=== PATIENT | female | born 1940 | race African-American/Black ===

== ENCOUNTER 2017-06-27 01:49 | Inpatient (IN) | payer MEDICARE ==
[2017-06-27 02:25] LABS: ABSOLUTE BASOPHILS # (AUTO) 0.1 10^3/uL (0.0-0.2); ABSOLUTE EOSINOPHILS # (AUTO) 0.1 10^3/uL (0.0-0.6); ABSOLUTE LYMPHOCYTES (AUTO) 1.5 10^3/uL (0.5-4.7); ABSOLUTE MONOCYTES (AUTO) 0.5 10^3/uL (0.1-1.4); ABSOLUTE NEUT (AUTO) 4.1 10^3/uL (1.7-8.2); EOSINOPHILS % (AUTO) 1.4 % (0-6); HEMATOCRIT 35.5 % (36.0-47.0); HEMOGLOBIN 11.2 g/dL (12.0-15.5); HGB HCT DIFFERENCE -1.9; LYMPHOCYTES % (AUTO) 24.3 % (13-45); MEAN CORPUSCULAR HEMOGLOBIN 22.8 pg (27.0-33.4); MEAN CORPUSCULAR HGB CONC 31.4 g/dL (32.0-36.0); MEAN CORPUSCULAR VOLUME 73 fl (80-97); MONOCYTES % (AUTO) 7.8 % (3-13); RED CELL DISTRIBUTION WIDTH 14.5 % (11.5-14.0); SEGMENTED NEUTROPHILS % (AUTO) 65.5 % (42-78); WHITE BLOOD COUNT 6.2 10^3/uL (4.0-10.5)
--- NOTE | 2017-06-27 02:27 | ER Document Report ---
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 Patient was at a gas station. She was there for 12 hours. The daughter did call and speak with the nurse informed her that the patient has paranoid schizophrenia and that she has not been taking her medications. Whenever she does not take medications for stress hallucinate and has issues like she does tonight. Patient herself denies this. She tells me that the only medication she takes is aspirin. She tells me she takes no other medications. I asked her why she was at the gas station so long. She says that she was only at the gas station for approximate she can snack. She tells me that she does not have a psychiatric history. This is in contradiction to what the daughter apparently said. This is also encouraged addiction to what the mobile crisis workers placed on involuntary commitment paperwork. She has no further complaints this time. She denies any pain. She otherwise feels well. - Related Data Allergies/Adverse Reactions: No Known Allergies Allergy (Unverified 06/27/17 02:25) Home Medications: Current Home Medications No Home Medications 06/27/17 [History] Past Medical History - Social History Smoking Status: Never Smoker Frequency of alcohol use: None Drug Abuse: None Family History: Reviewed & Not Pertinent Review of Systems - Review of Systems Notes: My Normal Review Basic REVIEW OF SYSTEMS: CONSTITUTIONAL : Denies fever, chills, or sweats. Denies recent illness. EENT: Denies eye, ear, throat, or mouth pain or symptoms. Denies nasal or sinus congestion. CARDIOVASCULAR: Denies chest pain. RESPIRATORY: Denies cough, cold, or chest congestion. Denies shortness of breath, difficulty breathing, or wheezing. GASTROINTESTINAL: Denies abdominal pain. Denies nausea, vomiting, or diarrhea. Denies constipation. Last BM: GENITOURINARY: Denies difficulty urinating, painful urination, burning, frequency, or blood in urine. MUSCULOSKELETAL: Denies neck or back pain or joint pain or swelling. SKIN: Denies rash or skin lesions. NEUROLOGICAL: Denies altered mental status or loss of consciousness. Denies headache. Denies weakness or paralysis or loss of use of either side. Denies problems with gait or speech. Denies sensory or motor loss. PSYCHIATRIC: Patient's. History of schizophrenia per report from family members. ALL OTHER SYSTEMS REVIEWED AND NEGATIVE. Physical Exam - Vital signs Vitals: Temp Pulse Resp BP Pulse Ox 98.2 F 66 15 137/65 H 100 06/27/17 02:23 06/27/17 02:23 06/27/17 02:23 06/27/17 02:23 06/27/17 02:23 - Notes Notes: General Appearance: Well nourished, alert, cooperative, no acute distress, no obvious discomfort. Appearing. Vitals: reviewed, See vital signs table. Head: no swelling or tenderness to the head Eyes: PERRL, EOMI, Conjuctiva clear Mouth: No decreasd moisture Throat: No tonsillar inflammation, No airway obstruction, No lymphadenopathy Lungs: No wheezing, No rales, No rhonci, No accessory muscle use, good air exchange bilaterally. Heart: Normal rate, Regular rythm, No murmur, no rub Abdomen: Normal BS, soft, No rigidity, No abdominal tenderness, No guarding, no rebound, no abdominal masses, no organomegaly Extremities: strength 5/5 in all extremities, good pulses in all extremities, no swelling or tenderness in the extremities, no edema. Skin: warm, dry, appropriate color, no rash Neuro: speech clear, oriented x 3, normal affect, responds appropriately to questions. Renal nerves II through XII are intact. Distal sensation intact. Normal gait. Course - Re-evaluation Re-evalutation: 06/27/17 03:30 Patient is medically stable for psychiatric evaluation and placement. She is on involuntary commitment paperwork. Patient apparently has history of paranoid schizophrenia has not been taking medications. It is unclear what medications she is supposed to be on at this time. Dictation of this chart was performed using voice recognition software; therefore, there may be some unintended grammatical errors. - Vital Signs Vital signs: Temp Pulse Resp BP Pulse Ox 98.2 F 66 15 137/65 H 100 06/27/17 02:23 06/27/17 02:23 06/27/17 02:23 06/27/17 02:23 06/27/17 02:23 - Laboratory Result Diagrams: 06/27/17 02:00 06/27/17 02:00 Laboratory results interpreted by me: 11/01/0606/27/17 06/27/17 02:00 02:00 02:00 Hgb 11.2 L Hct 35.5 L MCV 73 L MCH 22.8 L MCHC 31.4 L RDW 14.5 H Chloride 109 H Alkaline Phosphatase 134 H Total Protein 8.4 H Urine Ketones TRACE H Urine Blood MODERATE H Ur Leukocyte Esterase SMALL H Salicylates < 1.0 L Acetaminophen < 10 L - EKG Interpretation by Me Additional EKG results interpreted by me: 06/27/17 02:27 EKG is reviewed and interpreted by me. EKG shows normal sinus rhythm with rate of [address] segment elevation or depression. No ischemic T-wave inversions. NH interval, QRS duration, QTc intervals are within normal range.
[2017-06-27 02:33] LABS: APPEARANCE,URINE SLIGHTLY-CLOUDY; BILIRUBIN,URINE NEGATIVE (NEGATIVE); GLUCOSE, URINE NEGATIVE (NEGATIVE); KETONES,URINE TRACE mg/dL (NEGATIVE); LEUKOCYTE ESTERASE,URINE SMALL (NEGATIVE); NITRITE,URINE NEGATIVE (NEGATIVE); PROTEIN,URINE NEGATIVE (NEGATIVE); URINE SPECIFIC GRAVITY 1.021; UROBILINOGEN,URINE NEGATIVE mg/dL (<2.0)
[2017-06-27 02:38] LABS: ALANINE AMINOTRANSFERASE 28 U/L (9-52); ALBUMIN 4.4 g/dL (3.5-5.0); ALKALINE PHOSPHATASE 134 U/L (38-126); ANION GAP 13 (5-19); ASPARTATE AMINO TRANSFERASE 21 U/L (14-36); BILIRUBIN,DIRECT 0.3 mg/dL (0.0-0.4); BILIRUBIN,TOTAL 0.6 mg/dL (0.2-1.3); BLOOD UREA NITROGEN 15 mg/dL (7-20); CALCIUM 9.9 mg/dL (8.4-10.2); CARBON DIOXIDE 23 mmol/L (22-30); CHLORIDE 109 mmol/L (98-107); CREATININE RESULT 0.67 mg/dL (0.52-1.25); GLUCOSE 105 mg/dL (75-110); POTASSIUM 3.6 mmol/L (3.6-5.0); TOTAL PROTEIN 8.4 g/dL (6.3-8.2)
[2017-06-27 02:39] LABS: URINE BARBITURATES SCREEN NEGATIVE; URINE METHADONE SCREEN NEGATIVE; URINE OPIATES LOW NEGATIVE; URINE PHENCYCLIDINE SCREEN NEGATIVE
[2017-06-27 02:44] LABS: ALCOHOL < 10 mg/dL (NONE DETECTED)
--- NOTE | 2017-06-27 10:19 | PSYCHOLOGICAL NOTE ---
Psych Note - Psych Note Psych Note: Is a 76-year-old female who presented last night after she was found in a gas station parking lot for what was reported as 12 hours. Patient reportedly is from [place] and is diagnosed with paranoid schizophrenia and possible dementia (per nursing note) patient this morning states she made a wrong turn on her way home. Patient did not report where. She was coming from or what she was doing. Patient does report she is in [facility] but does not know the name of this facility. Patient is pleasant and easily engages in conversation in close proximity due to her reported hearing problems. Elizabeth mobile lay out worker with [facility] [phone] states: she responded around midnight last night after TODD found her sitting in a car at a gas station in [place] for over 12 hours. marriage and family social worker states she later found out that there was reported as a missing person in [place]. She states the patient resides in [place] and one of her son's, Nuno about 3 weeks ago who also served as her caregiver. Worker states the patient does have a living son, Arya who reported to her last night that she experiences command hallucinations, and reported that the patient stated Darek Sesay and [employer] told her to go to [place] to picking machine operator her son. Note, patient does not acknowledge that her son has . Also reported was over the past 6 months she has been IVC'd multiple times, most recently May 28. Silver Alert was canceled for this person. Niece's name and contact information: Ghada . Son, Arya [phone] states the patient hears voices for about 12 years that tell her to do things out of the ordinary. He states she follows commands, such as going back and forth to the care and or trash late at night, go to the car and go to the corner store and sit in the parking lot, and she can be observed arguing back and forth with the voices all day from the time she gets up to the time she goes to bed. Son reports she recently discharged from [facility], and was discharged last Wednesday but he has yet to see the paperwork and or medications. He states the patient told him she was driving to [place] to pick him up. Son states his brother of HIV, and she could not attend the due to being in the hospital. He states she refuses to acknowledge he has . Son further reports that he has no way to travel to [place] to retrieve his mother. Discussed with son overall concerns regarding patient's ability to drive herself home given this current episode. Noted patient's vehicle is in the [place] area. Ghada Cervantes [phone] states: over the past year the patient was IVC 4 times, but never stays in the hospital for long enough or will come out and take her medications for a few days and then report "[facility] [employer]" told her it was a joke. Niece reports the patient does not have a specific pharmacy, because she has never filled prescriptions upon discharge and would also shred her discharge papers and any prescriptions. Mirianece states the patient would not let anyone see them, and when the car pulled up to the house, she would go straight into her bedroom and use her shredding machine. Mirianherlinda states the patient can present extremely well, and even the deputy was going to let her drive home because she was able to tell her route, had a full tank of gas, etc. However, during a second conversation, she was unable to maintain her story or composure. Daughter reports the patient's sister in September, and then her son 3 weeks ago. Niherlinda states that historically the patient has been noncompliant with medications, and treatment. She states the patient has only ever been diagnosed with the Schizophrenia, and to her knowledge has no formal diagnosis of dementia. Helen reports up until know, her son has managed all the care and medications, and states tomorrow she plans to meet with a hardboard panel printer to discuss guardianship options. 799.59 (R41.9) unspecified neurocognitive disorder 298.9 (F29) unspecified schizophrenia spectrum and other psychotic disorder, per history Patient is recommended to rescind involuntary commitment at this time. Patient presents confused and with what is being reported as command hallucinations. Patient denies all of the above. Patient was found sitting in a parking lot for over 12 hours and had reported to family she was driving to [place] to picking machine operator her son, he should be noted is . Both collateral contacts deny a diagnosis of dementia but both endorse a diagnosis of schizophrenia only within the past 10-[address] demonstrates micorvascular ischemic changes of the white matter and areas of low density and prominent ventricles all suggestive of a neurocognitive process. Patient's overall presentation is more congruent with a neurocognitive process than Schizophrenia at this time. I consulted with Dr. Potter in regards to the care and management of this patient.
--- NOTE | 2017-06-27 13:50 | ER Document Report ---
ED General - General Chief Complaint: Psych Problem Stated Complaint: IVC WITH PAPERS Time Seen by Provider: 06/27/17 01:26 EST Notes: This is a very pleasant 76-year-old female patient who presented to the emergency department last night. Please see previous physician's note as well as mental health providers note. Reportedly patient was sleeping in a car. Altered mental status and a silver alert. Patient states that she drives and was going from [facility] to her home at [address] in [facility] [place] [facility] [place]. Got [place] [address] and ended up back here in [place] and slept. States that she knows how to get back home and would like to go home at this time. Denies any complaints at this time. - HPI Onset: Just prior to arrival - Related Data Allergies/Adverse Reactions: No Known Allergies Allergy (Unverified 06/27/17 02:25) Home Medications: Current Home Medications No Home Medications 06/27/17 [History] Past Medical History - General Information source: Patient - Social History Smoking Status: Never Smoker Frequency of alcohol use: None Drug Abuse: None Family History: Reviewed & Not Pertinent - Immunizations Hx Diphtheria, Pertussis, Tetanus Vaccination: No Review of Systems - Review of Systems Constitutional: No symptoms reported EENT: No symptoms reported Cardiovascular: No symptoms reported Respiratory: No symptoms reported Gastrointestinal: No symptoms reported Genitourinary: No symptoms reported Female Genitourinary: No symptoms reported Musculoskeletal: No symptoms reported Skin: No symptoms reported Hematologic/Lymphatic: No symptoms reported Neurological/Psychological: No symptoms reported Physical Exam - Vital signs Vitals: Temp Pulse Resp BP Pulse Ox 98.2 F 66 15 137/65 H 100 06/27/17 02:23 06/27/17 02:23 06/27/17 02:23 06/27/17 02:23 06/27/17 02:23 Interpretation: Normal - General General appearance: Appears well, Alert - HEENT Head: Normocephalic, Atraumatic Eyes: Normal Pupils: PERRL - Respiratory Respiratory status: No respiratory distress Chest status: Nontender Breath sounds: Normal Chest palpation: Normal - Cardiovascular Rhythm: Regular Heart sounds: Normal auscultation Murmur: No - Abdominal Inspection: Normal Distension: No distension Bowel sounds: Normal Tenderness: Nontender Organomegaly: No organomegaly - Back Back: Normal, Nontender - Extremities General upper extremity: Normal inspection, Nontender, Normal color, Normal ROM , Normal temperature General lower extremity: Normal inspection, Nontender, Normal color, Normal ROM , Normal temperature, Normal weight bearing. No: Rin's sign - Neurological Neuro grossly intact: Yes Cognition: Normal Orientation: AAOx4 Macy Coma Scale Eye Opening: Spontaneous Macy Coma Scale Verbal: Oriented Mell Coma Scale Motor: Obeys Commands Mell Coma Scale Total: 15 Speech: Normal Motor strength normal: LUE, RUE, LLE, RLE Sensory: Normal - Psychological Associated symptoms: Normal affect - Does have some obvious short-term memory loss. Believes that the president is Daniel Machado. Does not know the DR. Sesay is president. Is uncertain about where she is at this time., Normal mood - Skin Skin Temperature: Warm Skin Moisture: Dry Skin Color: Normal Course - Re-evaluation Re-evalutation: 06/27/17 13:49 This time family members have been contacted. They do not believe that patient has any mental health issue or dementia. Will add a head CT. Due to the fact that there is this reported time in a vehicle will add a arterial blood gas to look for carbon monoxide. Unlikely we will find anything as she has been in the emergency department now for several hours but we need to be safe just just in case. 06/27/17 14:55 Laboratory 06/27/17 06/27/17 06/27/17 02:00 02:00 02:00 WBC 6.2 RBC 4.90 Hgb 11.2 L Hct 35.5 L MCV 73 L MCH 22.8 L MCHC 31.4 L RDW 14.5 H Plt Count 377 Seg Neutrophils % 65.5 Lymphocytes % 24.3 Monocytes % 7.8 Eosinophils % 1.4 Basophils % 1.0 Absolute Neutrophils 4.1 Absolute Lymphocytes 1.5 Absolute Monocytes 0.5 Absolute Eosinophils 0.1 Absolute Basophils 0.1 Sodium 145.0 Potassium 3.6 Chloride 109 H Carbon Dioxide 23 Anion Gap 13 BUN 15 Creatinine 0.67 Est GFR ( Amer) > 60 Est GFR (Non-Af Amer) > 60 Glucose 105 Calcium 9.9 Total Bilirubin 0.6 Direct Bilirubin 0.3 Indirect Bilirubin Not Reportable Neonat Total Bilirubin Not Reportable AST 21 ALT 28 Alkaline Phosphatase 134 H Total Protein 8.4 H Albumin 4.4 Urine Color YELLOW Urine Appearance SLIGHTLY-CLOUDY Urine pH 5.0 Ur Specific [place] 1.021 Urine Protein NEGATIVE Urine Glucose (UA) NEGATIVE Urine Ketones TRACE H Urine Blood MODERATE H Urine Nitrite NEGATIVE Urine Bilirubin NEGATIVE Urine Urobilinogen NEGATIVE Ur Leukocyte Esterase SMALL H Urine WBC (Auto) 9 Urine RBC (Auto) 32 Squamous Epi Cells Auto 1 Urine Mucus (Auto) RARE Urine Ascorbic Acid NEGATIVE Salicylates < 1.0 L Urine Opiates Screen Urine Methadone Screen Acetaminophen < 10 L Ur Barbiturates Screen Ur Phencyclidine Scrn Ur Amphetamines Screen U Benzodiazepines Scrn Urine Cocaine Screen U Marijuana (THC) Screen Serum Alcohol < 10 06/27/17 02:00 WBC RBC Hgb Hct MCV MCH MCHC RDW Plt Count Seg Neutrophils % Lymphocytes % Monocytes % Eosinophils % Basophils % Absolute Neutrophils Absolute Lymphocytes Absolute Monocytes Absolute Eosinophils Absolute Basophils Sodium Potassium Chloride Carbon Dioxide Anion Gap BUN Creatinine Est GFR ( Amer) Est GFR (Non-Af Amer) Glucose Calcium Total Bilirubin Direct Bilirubin Indirect Bilirubin Neonat Total Bilirubin AST ALT Alkaline Phosphatase Total Protein Albumin Urine Color Urine Appearance Urine pH Ur Specific [place] Urine Protein Urine Glucose (UA) Urine Ketones Urine Blood Urine Nitrite Urine Bilirubin Urine Urobilinogen Ur Leukocyte Esterase Urine WBC (Auto) Urine RBC (Auto) Squamous Epi Cells Auto Urine Mucus (Auto) Urine Ascorbic Acid Salicylates Urine Opiates Screen NEGATIVE Urine Methadone Screen NEGATIVE Acetaminophen Ur Barbiturates Screen NEGATIVE Ur Phencyclidine Scrn NEGATIVE Ur Amphetamines Screen NEGATIVE U Benzodiazepines Scrn NEGATIVE Urine Cocaine Screen NEGATIVE U Marijuana (THC) Screen NEGATIVE Serum Alcohol Head CT 06/27/17 13:08 IMPRESSION: MILD CHRONIC CHANGES OF ATROPHY AND MICROVASCULAR ISCHEMIA. NO ACUTE PROCESS. EVIDENCE OF ACUTE STROKE: NO. 06/27/17 15:34 Patient with dementia. Is unsafe to go home. Patient needs a usp is right she really needs. Patient needs to be admitted for this altered mental status, dementia workup and possible UTI. Will consult with hospitalist for admit. - Vital Signs Vital signs: Temp Pulse Resp BP Pulse Ox 97.4 F 68 16 97/58 L 97 06/27/17 09:14 06/27/17 09:14 06/27/17 09:14 06/27/17 09:14 06/27/17 09:14 - Laboratory Result Diagrams: 06/27/17 02:00 06/27/17 02:00 Laboratory results interpreted by me: 06/27/17 06/27/1706/27/17 02:00 02:00 02:00 Hgb 11.2 L Hct 35.5 L MCV 73 L MCH 22.8 L MCHC 31.4 L RDW 14.5 H Chloride 109 H Alkaline Phosphatase 134 H Total Protein 8.4 H Urine Ketones TRACE H Urine Blood MODERATE H Ur Leukocyte Esterase SMALL H Salicylates < 1.0 L Acetaminophen < 10 L Discharge - Discharge Clinical Impression: Schizophrenia Qualifiers: Schizophrenia type: unspecified Qualified Code(s): F20.9 - Schizophrenia, unspecified Dementia Qualifiers: Dementia type: unspecified type Dementia behavioral disturbance: with behavioral disturbance Qualified Code(s): F03.91 - Unspecified dementia with behavioral disturbance Condition: Stable Disposition: ADMITTED INPATIENT Admitting Provider: Hospitalist - [facility] Admitted: Medical Floor
--- NOTE | 2017-06-27 14:13 | RADIOLOGY REPORT (SQ) ---
EXAM DESCRIPTION: CT HEAD WITHOUT COMPLETED DATE/TIME: 06/27/2017 2:01 pm REASON FOR STUDY: alterd mental status COMPARISON: None. TECHNIQUE: Axial images acquired through the brain without intravenous contrast. Images reviewed wi th bone, brain and subdural windows. Images stored on PACS. All CT scanners at this facility use dose modulation, iterative reconstruction, and/or weight based d osing when appropriate to reduce radiation dose to as low as reasonably achievable (ALARA). [facility]: Dose Right [facility]: CareDose [facility]: Dose Right [facility]: Teradose 4D [facility]: Smart [employer] RADIATION DOSE: Up-to-date CT equipment and radiation dose reduction techniques were employed. CTDIv ol: 64.6 mGy. DLP: 1034 mGy-cm. mGy. LIMITATIONS: None. FINDINGS: VENTRICLES: Prominent. CEREBRUM: No masses. No hemorrhage. No midline shift. Areas of low density in the white matter mos t likely due to chronic micro-vascular ischemic change. No evidence for acute infarction. CEREBELLUM: No masses. No hemorrhage. No alteration of density. No evidence for acute infarction. EXTRAAXIAL SPACES: Mild age-related involutional change. No fluid collections. No masses. ORBITS AND GLOBE: No intra- or extraconal masses. Normal contour of globe without masses. CALVARIUM: No fracture. PARANASAL SINUSES: No fluid or mucosal thickening. SOFT TISSUES: No mass or hematoma. OTHER: No other significant finding. IMPRESSION: MILD CHRONIC CHANGES OF ATROPHY AND MICROVASCULAR ISCHEMIA. NO ACUTE PROCESS. EVIDENCE OF ACUTE STROKE: NO. TECHNICAL DOCUMENTATION: JOB ID: [id number] Quality ID # [id number]: Final reports with documentation of one or more dose reduction techniques (e.g., Au tomated exposure control, adjustment of the mA and/or kV according to patient size, use of iterative reconstruction technique) 2010 [employer]- All Rights Reserved
--- NOTE | 2017-06-27 14:53 | EKG REPORT ---
SEVERITY:- NORMAL ECG - SINUS RHYTHM : Confirmed by: Bill Ferreira 27-Jun-2017 14:52:47
[2017-06-27 16:55] LABS: ARTERIAL BLOOD BASE EXCESS 4.3 mmol/L; ARTERIAL BLOOD O2 SATURATION 96.6 % (94-98)
--- NOTE | 2017-06-27 16:58 | PDOC PROGRESS REPORT ---
Subjective Progress Note for:: 06/27/17 Subjective:: This is a 76-year-old female who is brought in by department of public safety [place] because she was having sit in her car alone for long periods of time. Apparently she was at a gas station have been there for over 12 hours. log raft worker in the ER called her daughter or niece who states she has paranoid schizophrenia not been taken her medication. Mobile gas worker placed patient on involuntary commitment paperwork until further psychiatric evaluation and placement can be made. I will order a psych consult to evaluate her mental capacity and capability of making her own decisions at this time. Consider placement for her safety unless family will assume care. Physical Exam Vital Signs: Temp Pulse Resp BP Pulse Ox 97.4 F 68 16 97/58 L 97 06/27/17 09:14 06/27/17 09:14 06/27/17 09:14 06/27/17 09:14 06/27/17 09:14 General appearance: PRESENT: no acute distress, well-developed, well-nourished Head exam: PRESENT: atraumatic, normocephalic Eye exam: PRESENT: conjunctiva pink, EOMI, PERRLA. ABSENT: scleral icterus Ear exam: PRESENT: normal external ear exam Mouth exam: PRESENT: moist, tongue midline Neck exam: ABSENT: carotid bruit, JVD, lymphadenopathy, thyromegaly Respiratory exam: PRESENT: clear to auscultation anand. ABSENT: rales, rhonchi, wheezes Cardiovascular exam: PRESENT: RRR. ABSENT: diastolic murmur, rubs, systolic murmur Pulses: PRESENT: normal dorsalis pedis pul Vascular exam: PRESENT: normal capillary refill GI/Abdominal exam: PRESENT: normal bowel sounds, soft. ABSENT: distended, guarding, mass, organolmegaly, rebound, tenderness Rectal exam: PRESENT: deferred Extremities exam: PRESENT: full ROM. ABSENT: calf tenderness, clubbing, pedal edema Neurological exam: PRESENT: alert, awake, oriented to person, CN II-XII grossly intact. ABSENT: oriented to place, oriented to time, oriented to situation, motor sensory deficit Psychiatric exam: PRESENT: appropriate affect, normal mood. ABSENT: homicidal ideation, suicidal ideation Skin exam: PRESENT: dry, intact, warm. ABSENT: cyanosis, rash Results Impressions: Head CT 06/27/17 13:08 IMPRESSION: MILD CHRONIC CHANGES OF ATROPHY AND MICROVASCULAR ISCHEMIA. NO ACUTE PROCESS. EVIDENCE OF ACUTE STROKE: NO. Assessment & Plan - Diagnosis (1) UTI (urinary tract infection) Qualifiers: Urinary tract infection type: site unspecified Hematuria presence: without hematuria Qualified Code(s): N39.0 - Urinary tract infection, site not specified Is this a current diagnosis for this admission?: Yes Plan: Patient has a urinary tract infection with small amount of leukocyte esterase WBCs positive will treat patient with Rocephin after blood cultures are obtained. Also send a urine for sensitivity I will also give her some IV fluids due to the uncertainty of events leading up to today. (2) Dementia Qualifiers: Dementia type: unspecified type Dementia behavioral disturbance: with behavioral disturbance Qualified Code(s): F03.91 - Unspecified dementia with behavioral disturbance Is this a current diagnosis for this admission?: Yes Plan: Patient was started on BuSpar and Depakote sprinkles in the ER. Will have a formal psych consult ordered to evaluate competency and possible need for placement. I will attempt to contact family tomorrow if none is present apparently the ER had attempted to contact patient's daughter and her niece. I will follow-up. Have social work discharge planning get involved for discharge needs. (3) Schizophrenia Qualifiers: Schizophrenia type: unspecified Qualified Code(s): F20.9 - Schizophrenia, unspecified - Inpatient Certification Based on my medical assessment, after consideration of the patient's comorbidities, presenting symptoms, or acuity I expect that the services needed warrant INPATIENT care.: Yes I certify that my determination is in accordance with my understanding of Medicare's requirements for reasonable and necessary INPATIENT services [42 CFR 412.3e].: Yes Medical Necessity: Need for IV Antibiotics, Risk of Diagnosis Which Will Require Inpatient Eval/Care/Monitoring Post Hospital Care: D/C Automation Analyst Documentation
[2017-06-27] MEDS: DIVALPROEX SODIUM 125 MG CAP.SPRINK PO SCH (17:07)
[2017-06-27] MEDS ORDERED: CEFTRIAXONE 1 GM/D5W RTU 1 GM/50 ML RTUPB IV ONE (17:16)
[2017-06-27] MEDS ORDERED: BUSPIRONE HCL 10 MG TABLET PO SCH (18:00)
[2017-06-27] MEDS: DEXTROSE 5%-1/2 NORMAL SALINE 1,000 ML IV PRN (18:18)
[2017-06-27] MEDS ORDERED: INFLUENZA ADLT QUAD (36MOS+) 2017-18 VAC 0.5 ML SYR IM PRN (20:22)
[2017-06-28] MEDS: ENOXAPARIN SODIUM INJ 30 MG/0.3 ML DISP.SYRIN SUBCUT SCH (09:25)
[2017-06-28] MEDS: CEFTRIAXONE 1 GM/D5W RTU 1 GM/50 ML RTUPB IV SCH (09:26)
[2017-06-28] MEDS: BUSPIRONE HCL 10 MG TABLET PO SCH ×2 (10:20→17:50)
[2017-06-28] MEDS ORDERED: INFLUENZA ADLT QUAD (36MOS+) 2017-18 VAC 0.5 ML SYR IM PRN (10:30)
[2017-06-28] MEDS: DIVALPROEX SODIUM 125 MG CAP.SPRINK PO SCH ×2 (10:38→17:50)
--- NOTE | 2017-06-28 13:03 | PDOC PROGRESS REPORT ---
Subjective Progress Note for:: 06/28/17 Subjective:: This is a 76-year-old female who is brought in by department of public safety [place] because she was having sit in her car alone for long periods of time. Apparently she was at a gas station have been there for over 12 hours. custodial maintenance worker in the ER called her daughter or niece who states she has paranoid schizophrenia not been taken her medication. Mobile adult day care worker placed patient on involuntary commitment paperwork until further psychiatric evaluation and placement can be made. I will order a psych consult to evaluate her mental capacity and capability of making her own decisions at this time. Consider placement for her safety unless family will assume care. Patient continues to have confusion she is unable to care for family or medical history adequately of family present. Physical Exam Vital Signs: Temp Pulse Resp BP Pulse Ox 98.1 F 76 12 138/73 H 100 06/28/17 07:30 06/28/17 07:30 06/28/17 07:30 06/28/17 07:30 06/28/17 07:30 Intake & Output 06/27/17 06/28/17 06/29/17 06:59 06:59 06:59 Intake Total 1020 Balance 1020 General appearance: PRESENT: no acute distress, well-developed, well-nourished Head exam: PRESENT: atraumatic, normocephalic Eye exam: PRESENT: conjunctiva pink, EOMI, PERRLA. ABSENT: scleral icterus Ear exam: PRESENT: normal external ear exam Mouth exam: PRESENT: moist, tongue midline Neck exam: ABSENT: carotid bruit, JVD, lymphadenopathy, thyromegaly Respiratory exam: PRESENT: clear to auscultation anand. ABSENT: rales, rhonchi, wheezes Cardiovascular exam: PRESENT: RRR. ABSENT: diastolic murmur, rubs, systolic murmur Pulses: PRESENT: normal dorsalis pedis pul Vascular exam: PRESENT: normal capillary refill GI/Abdominal exam: PRESENT: normal bowel sounds, soft. ABSENT: distended, guarding, mass, organolmegaly, rebound, tenderness Rectal exam: PRESENT: deferred Extremities exam: PRESENT: full ROM. ABSENT: calf tenderness, clubbing, pedal edema Neurological exam: PRESENT: alert, awake, oriented to person, oriented to place , oriented to time, oriented to situation, CN II-XII grossly intact. ABSENT: motor sensory deficit Psychiatric exam: PRESENT: appropriate affect, normal mood. ABSENT: homicidal ideation, suicidal ideation Skin exam: PRESENT: dry, intact, warm. ABSENT: cyanosis, rash Results Laboratory Results: 06/27/17 16:40 Carbonic Acid 1.32 HCO3/H2CO3 Ratio 21:1 ABG pH 7.44 ABG pCO2 44.0 ABG pO2 84.5 ABG HCO3 29.0 H ABG O2 Saturation 96.6 ABG Base Excess 4.3 FiO2 21% Impressions: Head CT 06/27/17 13:08 IMPRESSION: MILD CHRONIC CHANGES OF ATROPHY AND MICROVASCULAR ISCHEMIA. NO ACUTE PROCESS. EVIDENCE OF ACUTE STROKE: NO. Assessment & Plan - Diagnosis (1) UTI (urinary tract infection) Qualifiers: Urinary tract infection type: site unspecified Hematuria presence: without hematuria Qualified Code(s): N39.0 - Urinary tract infection, site not specified Is this a current diagnosis for this admission?: Yes (2) Dementia Qualifiers: Dementia type: unspecified type Dementia behavioral disturbance: with behavioral disturbance Qualified Code(s): F03.91 - Unspecified dementia with behavioral disturbance Is this a current diagnosis for this admission?: Yes (3) Schizophrenia Qualifiers: Schizophrenia type: unspecified Qualified Code(s): F20.9 - Schizophrenia, unspecified
[2017-06-29] MEDS: DEXTROSE 5%-1/2 NORMAL SALINE 1,000 ML IV PRN (02:42)
[2017-06-29] MEDS: ENOXAPARIN SODIUM INJ 30 MG/0.3 ML DISP.SYRIN SUBCUT SCH (09:47)
[2017-06-29] MEDS: CEFTRIAXONE 1 GM/D5W RTU 1 GM/50 ML RTUPB IV SCH (09:47)
[2017-06-29] MEDS: DIVALPROEX SODIUM 125 MG CAP.SPRINK PO SCH ×2 (09:48→17:20)
[2017-06-29] MEDS: BUSPIRONE HCL 10 MG TABLET PO SCH ×2 (09:48→17:20)
--- NOTE | 2017-06-29 13:52 | PDOC PROGRESS REPORT ---
Subjective Progress Note for:: 06/29/17 Subjective:: Patient is seen on morning rounds sitting up in bed comfortably. She reports that she does not have much of an appetite today but denies abdominal pain, nausea, vomiting, diarrhea, constipation. She states that she slept well and appreciates having had good care. She does ask about being discharged home today. She states that she came to [place] by accident on her way to [place] to see her son, and believes that her admission to the hospital was "all just worrying over much." Per notes by planner chief, patient's son 3 weeks ago. The patient has a history of schizophrenia and medication nonadherence but otherwise has been in good health. Family members are in the process of meeting with director of physician practices to establish guardianship and find permanent placement for the patient in [place] they live. The patient states that she is feeling fine and has no other questions or concerns today. Physical Exam Vital Signs: Temp Pulse Resp BP Pulse Ox 98.7 F 96 16 129/63 H 98 06/28/17 19:40 06/28/17 19:40 06/28/17 19:40 06/28/17 19:40 06/28/17 19:40 Intake & Output 06/28/17 06/29/17 06/30/17 06:59 06:59 06:59 Intake Total 1020 3078 Balance 1020 3078 General appearance: PRESENT: no acute distress, cooperative, well-developed, well-nourished Head exam: PRESENT: atraumatic, normocephalic Eye exam: PRESENT: conjunctiva pink, EOMI, PERRLA. ABSENT: scleral icterus Ear exam: PRESENT: normal external ear exam Mouth exam: PRESENT: moist, tongue midline Neck exam: ABSENT: carotid bruit, JVD, lymphadenopathy, thyromegaly Respiratory exam: PRESENT: clear to auscultation anand. ABSENT: rales, rhonchi, wheezes Cardiovascular exam: PRESENT: RRR. ABSENT: diastolic murmur, rubs, systolic murmur Pulses: PRESENT: normal dorsalis pedis pul Vascular exam: PRESENT: normal capillary refill GI/Abdominal exam: PRESENT: normal bowel sounds, soft. ABSENT: distended, guarding, mass, organolmegaly, rebound, tenderness Rectal exam: PRESENT: deferred Extremities exam: PRESENT: full ROM. ABSENT: calf tenderness, clubbing, pedal edema Neurological exam: PRESENT: alert, awake, oriented to person, oriented to place , oriented to time, CN II-XII grossly intact. ABSENT: oriented to situation, motor sensory deficit Psychiatric exam: PRESENT: appropriate affect, normal mood. ABSENT: homicidal ideation, suicidal ideation Skin exam: PRESENT: dry, intact, warm. ABSENT: cyanosis, rash Results Impressions: Head CT 06/27/17 13:08 IMPRESSION: MILD CHRONIC CHANGES OF ATROPHY AND MICROVASCULAR ISCHEMIA. NO ACUTE PROCESS. EVIDENCE OF ACUTE STROKE: NO. Assessment & Plan - Diagnosis (1) Dementia Qualifiers: Dementia type: unspecified type Dementia behavioral disturbance: with behavioral disturbance Qualified Code(s): F03.91 - Unspecified dementia with behavioral disturbance Is this a current diagnosis for this admission?: Yes Plan: 1-Appreciate discharge planning's assistance in arranging a safe discharge plan. (2) Schizophrenia Qualifiers: Schizophrenia type: unspecified Qualified Code(s): F20.9 - Schizophrenia, unspecified Is this a current diagnosis for this admission?: Yes Plan: 1- Continue Depakote 500 mg p.o. twice daily 2- Continue BuSpar 10 mg p.o. twice daily 3-appreciate discharge planning assistance in developing a safe discharge plan. (3) UTI (urinary tract infection) Qualifiers: Urinary tract infection type: site unspecified Hematuria presence: without hematuria Qualified Code(s): N39.0 - Urinary tract infection, site not specified Is this a current diagnosis for this admission?: Yes Plan: UA on admission positive for leuk esterase, blood, ketones and so patient was empirically started on Rocephin for UTI. Urine culture demonstrates mixed urogenital yasmine and patient is asymptomatic today, therefore will discontinue Rocephin tomorrow after receiving her third dose. - Time Time Spent with patient: 25-34 minutes Medications reviewed and adjusted accordingly: Yes
[2017-06-30] MEDS: CEFTRIAXONE 1 GM/D5W RTU 1 GM/50 ML RTUPB IV SCH (09:08)
[2017-06-30] MEDS: BUSPIRONE HCL 10 MG TABLET PO SCH ×2 (09:10→17:37)
[2017-06-30] MEDS: DIVALPROEX SODIUM 125 MG CAP.SPRINK PO SCH ×2 (09:10→17:38)
[2017-06-30] MEDS: ENOXAPARIN SODIUM INJ 30 MG/0.3 ML DISP.SYRIN SUBCUT SCH (09:13)
--- NOTE | 2017-06-30 11:54 | PDOC PROGRESS REPORT ---
Subjective Progress Note for:: 06/30/17 Subjective:: Patient is seen on morning rounds sitting up in recliner comfortably. She is very pleasant and thankful for her care. She states that she has not had much breakfast, though enjoyed her coffee. Per nursing, she did eat well throughout the day. She denies abd pain, nausea, vomiting, diarrhea/constipation. She does ask about her discharge home and states that she would prefer to go home with her "play daughter" and not her niece. She states that she is concerned about her niece taking time off of work and being an inconvenience. She appears to become slightly confused and distressed when attempting to clarify who the daughter is. Otherwise, she has no questions or concerns today. Physical Exam Vital Signs: Temp Pulse Resp BP Pulse Ox 98.5 F 84 16 107/66 97 06/30/17 08:06 06/30/17 08:06 06/30/17 08:06 06/30/17 08:06 06/30/17 08:06 Intake & Output 06/29/17 06/30/17 07/01/17 06:59 06:59 06:59 Intake Total 3078 2322 Output Total 1000 Balance 3078 1322 General appearance: PRESENT: no acute distress, well-developed, well-nourished Head exam: PRESENT: atraumatic, normocephalic Eye exam: PRESENT: conjunctiva pink, EOMI, PERRLA. ABSENT: scleral icterus Ear exam: PRESENT: normal external ear exam Mouth exam: PRESENT: moist, tongue midline Neck exam: ABSENT: carotid bruit, JVD, lymphadenopathy, thyromegaly Respiratory exam: PRESENT: clear to auscultation anand, unlabored. ABSENT: rales , rhonchi, wheezes Cardiovascular exam: PRESENT: RRR, +S1, +S2. ABSENT: diastolic murmur, rubs, systolic murmur Pulses: PRESENT: normal dorsalis pedis pul Vascular exam: PRESENT: normal capillary refill GI/Abdominal exam: PRESENT: normal bowel sounds, soft. ABSENT: distended, guarding, mass, organolmegaly, rebound, tenderness Rectal exam: PRESENT: deferred Extremities exam: PRESENT: full ROM. ABSENT: calf tenderness, clubbing, pedal edema Neurological exam: PRESENT: alert, awake, oriented to person, CN II-XII grossly intact, other - Pleasantly confused; redirects/reorients well. ABSENT: oriented to place, oriented to time, oriented to situation, motor sensory deficit Psychiatric exam: PRESENT: appropriate affect, normal mood. ABSENT: homicidal ideation, suicidal ideation Skin exam: PRESENT: dry, intact, warm. ABSENT: cyanosis, rash Results Impressions: Head CT 06/27/17 13:08 IMPRESSION: MILD CHRONIC CHANGES OF ATROPHY AND MICROVASCULAR ISCHEMIA. NO ACUTE PROCESS. EVIDENCE OF ACUTE STROKE: NO. Assessment & Plan - Diagnosis (1) Dementia Qualifiers: Dementia type: unspecified type Dementia behavioral disturbance: with behavioral disturbance Qualified Code(s): F03.91 - Unspecified dementia with behavioral disturbance Is this a current diagnosis for this admission?: Yes Plan: 1-Appreciate discharge planning's assistance in arranging a safe discharge plan. (2) Schizophrenia Qualifiers: Schizophrenia type: unspecified Qualified Code(s): F20.9 - Schizophrenia, unspecified Is this a current diagnosis for this admission?: Yes Plan: 1- Continue Depakote 500 mg p.o. twice daily 2- Continue BuSpar 10 mg p.o. twice daily 3- Appreciate discharge planning assistance in developing a safe discharge plan. (3) UTI (urinary tract infection) Qualifiers: Urinary tract infection type: site unspecified Hematuria presence: without hematuria Qualified Code(s): N39.0 - Urinary tract infection, site not specified Is this a current diagnosis for this admission?: Yes Plan: UA on admission positive for leuk esterase, blood, ketones and so patient was empirically started on Rocephin for UTI. Urine culture demonstrates mixed urogenital yasmine and patient is asymptomatic. Unfortunately, pt missed Rocephin dose yesterday; will continue through tomorrow. - Time Time Spent with patient: 15-24 minutes Anticipated discharge: Home - w/ family as arranged by dicharge planning Within: within 24 hours
[2017-07-01] MEDS: DIVALPROEX SODIUM 125 MG CAP.SPRINK PO SCH ×2 (09:12→17:45)
[2017-07-01] MEDS: BUSPIRONE HCL 10 MG TABLET PO SCH ×2 (09:13→17:45)
[2017-07-01] MEDS: ENOXAPARIN SODIUM INJ 30 MG/0.3 ML DISP.SYRIN SUBCUT SCH (09:13)
[2017-07-01] MEDS: CEFTRIAXONE 1 GM/D5W RTU 1 GM/50 ML RTUPB IV SCH (09:13)
--- NOTE | 2017-07-01 12:17 | PDOC DISCHARGE SUMMARY ---
General - Admit/Disc Date/PCP Admission Date/Primary Care Provider: 06/27/17 16:20 Discharge Date: 07/01/17 - Discharge Diagnosis (1) Dementia Is this a current diagnosis for this admission?: Yes Summary: Patient was brought to the emergency department by police personnel. She was found sitting in her car at a gas station for approximately 12 hours. Patient was confused stating that she had driven from [place] to [place] to see her son and then became lost on her way home. Per the patient's family members , she was a silver alert last week due to becoming lost while driving. Per family she has a history of schizophrenia with multiple inpatient hospital admissions for the same, but upon discharge he discontinues her medications and relapses. According to her son, Carlos, the patient had driven to [place] to see a son that approximately 3 weeks ago but the patient refuses to acknowledge his . She was restarted on her medications and treated for UTI. She was pleasantly confused but easily be oriented throughout the stay. Her hospital admission was otherwise uneventful. On day of discharge she is stable to be discharged into the direct care of a family member with recommendations for driving restrictions, and 24 hour supervision or consideration of establishing residency at a memory care center. (2) Schizophrenia Is this a current diagnosis for this admission?: Yes Summary: Patient was restarted on Depakote 500 mg twice daily and BuSpar 5 mg every morning 10 mg every afternoon. She remains pleasantly confused, however reorients easily. She recognizes that she is in a hospital in [place] but does become confused when discussing the events leading up to her admission. (3) UTI (urinary tract infection) Is this a current diagnosis for this admission?: Yes Summary: Blood cultures no growth at 72 hours; urine culture with mixed urogenital yasmine. Patient received 3 days IV Rocephin. - Additional Information Discharge Diet: As Tolerated Discharge Activity: Activity As Tolerated, No Driving Home Medications: Buspirone HCl [Buspar 10 mg Tablet] 5 mg PO DAILY #30 tablet 07/01/17 Buspirone HCl [Buspar 10 mg Tablet] 10 mg PO QPM #30 tablet 07/01/17 Divalproex Sodium [Depakote Sprinkle 125 mg Capsule] 500 mg PO BID #60 cap.sprink 07/01/17 History of Present Illness History of Present Illness: Per H&P by Mary Jane Trevino: MILES QIU is a 76 year old female who was brought in by department of public safety [place] because she was having sit in her car alone for long periods of time. Apparently she was at a gas station having been there for over 12 hours. telephone lineworker and ER called her daughter or niece who states she has paranoid schizophrenia and not been taking her medications. Mobile machine operator hop worker placed patient on involuntary commitment paperwork until further psychiatric evaluation and placement can be made. I will order a psych consult to evaluate her mental capacity and capability of making her own decisions at this time. Consider placement for her safe D unless family will assume care. Hospital Course Hospital Course: Patient was a silver alert and was found at a gas station sitting in her car for greater than 12 hours. Her family in [place] was contacted who confirmed that she has a history of schizophrenia with medication noncompliance. She was recently hospitalized for the same but stopped her medications after her discharge. She drove herself from [place] to [place] to see us on who, unfortunately, 3 weeks ago. The patient was unable to attend his son's due to being hospitalized at that time and denies that he has . She becomes easily agitated and tearful when discussing her son and so this was not pursued further. The patient states that she simply got lost on her return trip from [place]. She was restarted on Depakote and BuSpar with no side effects. She remains pleasantly confused but reorientate quickly to the situation so long as her son is not discussed. Emergency department workup did reveal the patient had a UTI. Blood cultures were negative urine cultures grew mixed urogenital yasmine. She did receive 3 days of IV Rocephin and has remained asymptomatic throughout admission. Discharge planning spoke with family members who agreed to drift down today to supervisor picking crew the patient. They plan to have her follow-up with [facility] for continued medical management. On day of discharge, patient is stable for discharge to home in the care of family members. Physical Exam Vital Signs: Temp Pulse Resp BP Pulse Ox 97.8 F 79 18 107/54 L 100 07/01/17 08:06 07/01/17 08:06 07/01/17 08:06 07/01/17 08:06 07/01/17 08:06 Intake & Output 11/04/0807/01/17 07/02/17 06:59 06:59 06:59 Intake Total 2322 2330 Output Total 1000 600 Balance 1322 1730 General appearance: PRESENT: no acute distress, thin, well-developed, well- nourished Head exam: PRESENT: atraumatic, normocephalic Eye exam: PRESENT: conjunctiva pink, EOMI, PERRLA. ABSENT: scleral icterus Ear exam: PRESENT: normal external ear exam Mouth exam: PRESENT: moist, tongue midline Neck exam: ABSENT: carotid bruit, JVD, lymphadenopathy, thyromegaly Respiratory exam: PRESENT: clear to auscultation anand. ABSENT: rales, rhonchi, wheezes Cardiovascular exam: PRESENT: RRR. ABSENT: diastolic murmur, rubs, systolic murmur Pulses: PRESENT: normal dorsalis pedis pul Vascular exam: PRESENT: normal capillary refill GI/Abdominal exam: PRESENT: normal bowel sounds, soft. ABSENT: distended, guarding, mass, organolmegaly, rebound, tenderness Rectal exam: PRESENT: deferred Extremities exam: PRESENT: full ROM. ABSENT: calf tenderness, clubbing, pedal edema Neurological exam: PRESENT: alert, awake, oriented to person, oriented to place , oriented to time, CN II-XII grossly intact. ABSENT: oriented to situation, motor sensory deficit Psychiatric exam: PRESENT: appropriate affect, normal mood. ABSENT: homicidal ideation, suicidal ideation Skin exam: PRESENT: dry, intact, warm. ABSENT: cyanosis, rash Results Impressions: Head CT 06/27/17 13:08 IMPRESSION: MILD CHRONIC CHANGES OF ATROPHY AND MICROVASCULAR ISCHEMIA. NO ACUTE PROCESS. EVIDENCE OF ACUTE STROKE: NO. Qualifiers PATEINT BEING DISCHARGED WITH ANY OF THE FOLLOWING DIAGNOSIS?: No
[2017-07-02 07:50] VITALS: BP 144/57
== END 2017-07-02 08:10 | disposition home or self-care (01) | DRG 884 ==
LOC: EDBD 01:49 → ER 01:49 → EH 16:13 → UNDOADMIN 16:13 → EH 16:20 → 4S 19:43
PROVIDERS: ADMIT Pediatrics; ATTEND Pediatrics
DX: F03.91 Unspecified dementia, unspecified severity, with behavioral disturbance (principal); N39.0 Urinary tract infection, site not specified; F20.9 Schizophrenia, unspecified; Z91.14 Patient's other noncompliance with medication regimen
CPT/HCPCS: 36415; 36600; 70450; 80053; 80307; 81001; 82803; 82962; 85025; 87040; 87086; 93005; 93010; 99285; J0696; J1650; J3490